=== PATIENT | female | born 1980 | race Caucasian/White ===

== ENCOUNTER → 2023-06-07 11:00 | Outpatient (CLI) | payer MEDICAID, SELFPAY ==
[2023-06-07 18:57] LABS: Amphetamine/Metha Screen,Urine Negative ng/ml (<1000)
[2023-06-07 18:58] LABS: Benzodiazepines Screen,Urine Negative ng/ml (<200)
[2023-06-07 18:59] LABS: Cannabinoid Screen,Urine Negative ng/ml (<50)
[2023-06-07 19:04] LABS: Cocaine Screen,Urine Negative ng/ml (<300)
[2023-06-07 19:05] LABS: Methadone Screen,Urine Negative ng/ml (<300); Opiate Screen,Urine Negative ng/ml (<300)
[2023-06-07 19:06] LABS: Phencyclidine Screen,Urine Negative ng/ml (<25)
[2023-06-07 19:08] LABS: Barbiturates Screen,Urine Negative ng/ml (<200)
== END ==
PROVIDERS: PCP Emergency Medicine; Visit Provider Emergency Medicine
DX: Z79.899 Other long term (current) drug therapy (principal)
CPT/HCPCS: 80305

== ENCOUNTER → 2023-08-15 16:47 | Outpatient (CLI) | payer MEDICAID, SELFPAY ==
[2023-08-15 16:22] LABS: Barbiturates Screen,Urine Negative ng/ml (<200)
[2023-08-15 16:23] LABS: Amphetamine/Metha Screen,Urine Negative ng/ml (<1000)
[2023-08-15 16:24] LABS: Benzodiazepines Screen,Urine Negative ng/ml (<200)
[2023-08-15 16:25] LABS: Cannabinoid Screen,Urine Negative ng/ml (<50); Cocaine Screen,Urine Negative ng/ml (<300)
[2023-08-15 16:26] LABS: Methadone Screen,Urine Negative ng/ml (<300)
[2023-08-15 16:27] LABS: Opiate Screen,Urine Positive ng/ml (<300); Phencyclidine Screen,Urine Negative ng/ml (<25)
[2023-08-15 19:25] LABS: Basophils # 0.1 K/mm3 (0-0.2); Basophils % 0.7 % (0.1-2.0); Eosinophils # 0.2 K/mm3 (0.0-0.4); Eosinophils % 1.5 % (0.1-12.0); Hematocrit 44.3 % (37.0-47.0); Hemoglobin 15.5 g/dL (12.2-16.2); Lymphocytes # 2.7 K/mm3 (0.7-4.5); Lymphocytes % 20.4 % (10-50); Mean Corpuscular Hemoglobin 31.4 pg (27.0-31.2); Mean Corpuscular Volume 89.7 fl (81-99); Mean Platelet Volume 9.8 fl (7.4-10.4); Monocytes # 0.8 K/mm3 (0.1-1.0); Monocytes % 6.1 % (1.7-9.3); Neutrophils # 9.5 K/mm3 (1.8-7.8); Neutrophils % 71.3 % (37.0-80.0); Platelet Count 373 K/mm3 (142-424); Red Blood Count 4.94 M/mm3 (4.20-5.40); Red Cell Distribution Width 13.6 % (11.5-17.5); White Blood Count 13.3 K/mm3 (4.8-10.8)
[2023-08-15 20:37] LABS: Alanine Aminotransferase 47 U/L (12-78); Albumin Level 4.6 g/dl (3.5-5.0); Albumin/Globulin Ratio 1.4 (1.1-1.8); Alkaline Phosphatase 81 U/L (38-126); Anion Gap 15.9 mEq/L (5-15); Aspartate Amino Transferase 53 U/L (14-36); Bilirubin,Total 0.5 mg/dl (0.2-1.3); Blood Urea Nitrogen 10 mg/dl (7-17); Calcium 9.3 mg/dl (8.4-10.2); Carbon Dioxide 23 mmol/L (22.0-30.0); Chloride 101 mmol/L (98-107); Chol/HDL Ratio 4.1 (1-3.5); Cholesterol 217 mg/dl (140-200); Estimated Glomerular Filt Rate 111 ml/min (>60); GFR (African American) 134 ML/MIN (>60); Globulin 3.3 g/dL (1.3-3.2); Glucose 93 mg/dl (74-100); HDL Cholesterol 53 mg/dl (40-60); Potassium 3.9 mmoL/L (3.5-5.1); Sodium 136 mmol/L (136-145); Total Protein,Serum 7.9 g/dl (6.3-8.2); Triglycerides 130 mg/dl (30-150); VLDL Cholesterol 26 mg/dL (0-40)
[2023-08-15 20:50] LABS: Direct LDL Cholesterol 140.84 mg/dL (100-129)
[2023-08-15 21:00] LABS: T4 (Thyroxine) 7.6 ug/dl (5.53-11.0)
[2023-08-15 21:13] LABS: Thyroid Stimulating Hormone 1.41 uIU/mL (0.465-4.68)
[2023-08-15 21:20] LABS: 25-OH Vitamin D, Total 13.5 ng/mL (30-100)
== END ==
PROVIDERS: PCP Emergency Medicine; Visit Provider Emergency Medicine
DX: E55.9 Vitamin D deficiency, unspecified (principal); E66.9 Obesity, unspecified; Z68.32 Body mass index [BMI] 32.0-32.9, adult; Z79.899 Other long term (current) drug therapy
CPT/HCPCS: 80053; 80061; 80305; 82306; 84436; 84443; 85025